=== PATIENT | female | born 1970 | race Caucasian/White ===

== ENCOUNTER 2022-04-12 14:04 | Outpatient (RCR) | payer OTHER, SELFPAY | END 2022-10-09 23:59 | disposition home or self-care (01) | LOC: CCIC 14:04 | PROVIDERS: PCP Family Medicine; Visit Provider Nurse Practitioner Family | DX: C50.912 Malignant neoplasm of unspecified site of left female breast (principal); Z17.0 Estrogen receptor positive status [ER+]; Z79.811 Long term (current) use of aromatase inhibitors | CPT/HCPCS: 99212; 99214 ==

== ENCOUNTER 2022-11-29 08:26 | Outpatient (RCR) | payer OTHER, SELFPAY | END 2023-05-28 23:59 | disposition home or self-care (01) | LOC: CCIC 08:26 | PROVIDERS: PCP Family Medicine; Visit Provider Internal Medicine Hematology & Oncology | DX: C50.912 Malignant neoplasm of unspecified site of left female breast (principal); Z17.0 Estrogen receptor positive status [ER+]; Z79.811 Long term (current) use of aromatase inhibitors | CPT/HCPCS: 99212; 99214 ==

== ENCOUNTER 2023-02-08 12:51 | Outpatient (CLI) | payer OTHER, SELFPAY ==
--- NOTE | 2023-02-08 13:00 | CRLHL7_ITS ---
For Patients: As a result of the Century Cures Act, medical imaging exams and procedure reports are released immediately into your electronic medical record. You may view this report before your referring provider. If you have questions, please contact your health care provider. BILATERAL SCREENING MAMMOGRAM WITH COMPUTER-AIDED DETECTION AND TOMOSYNTHESIS TECHNIQUE: CC and MLO views were obtained. These mammographic images have been obtained using full-field digital technique. These mammographic images were interpreted with the benefit of computer-aided detection. Breast Tomosynthesis was used in this interpretation. COMPARISON FILM: 11/16/21, 07/08/20, 03/24/19. FINDINGS: The breasts are heterogeneously dense, which may obscure small masses IMPRESSION: There is no radiographic evidence for malignancy. ASSESSMENT: BI-RADS Category 2: Benign RECOMMENDATION: Routine screening mammogram in 1 year. A lay language report of this examination will be provided to the patient. Oswaldo Christianson M.D. Diagnostic Radiologist [email or web address] Transcribed: 3:05 [email or web address]/Dictated by: Oswaldo Christianson MD @ 02/11/2023 8:39:00 AM (Electronically Signed)
== END 2023-02-08 12:52 | disposition home or self-care (01) ==
LOC: MAMMO 12:52
PROVIDERS: PCP Family Medicine; Visit Provider Family Medicine
DX: Z12.31 Encounter for screening mammogram for malignant neoplasm of breast (principal); R92.2 Inconclusive mammogram
CPT/HCPCS: 77063; 77067

== ENCOUNTER 2023-07-11 14:36 | Outpatient (CLI) | payer OTHER, SELFPAY ==
--- NOTE | 2023-07-11 | CRLHL7_ITS ---
For Patients: As a result of the Century Cures Act, medical imaging exams and procedure reports are released immediately into your electronic medical record. You may view this report before your referring provider. If you have questions, please contact your health care provider. DXA BONE MINERAL DENSITY STUDY Reason for exam: Breast cancer. Current height (in): 65. Weight (lb): 140. Menopause age: 51. Ethnicity: White. 1. Have you had a previous hip or vertebral fracture? No. 2. Have you had any fractures during your adult life which did not result from significant trauma (e.g., auto accident)? No. 3. Did either of your parents have a hip fracture? No. 4. Do you smoke? No. 5. Have you ever taken Glucocorticoids? No. 6. Do you have rheumatoid arthritis? No. 7. Do you have secondary osteoporosis? No. 8. Do you drink 3 or more alcoholic drinks per day? No. 9. Are you being treated for osteoporosis? No. 10. Have you ever taken any of the following medications: Actonel, Evista, Fosamax, Miacalcin, Reclast, Boniva, Forteo, HRT (i.e., estrogen/hormone therapy), Protelos, Prolia, Vitamin D, Calcium, other ??? please specify. ANSWER: Yes, vitamin D and calcium. 11. Do you have any of the following medical conditions: Anorexia or bulimia, asthma or emphysema, end stage renal disease, hyperparathyroidism, any seizure disorders, cancer, inflammatory bowel diseases, hysterectomy, other ??? please specify. ANSWER: Yes, cancer. 12. What was your maximum height (inches)? 65. 13. Do you perform weight bearing exercise regularly? Yes. 14. Do you regularly consume dairy products? No. 15. Do you drink caffeinated beverages? Yes. If female: 16. At what age did your period start? 16. 17. Are you premenopausal? No. 18. How many full-term pregnancies have you had? 2. 19. Have you ever missed your period for more than 6 months in a row (not including or menopause)? No. TECHNIQUE: Bone mineral density study was performed using the [employer]. FINDINGS: The results of the study expressed as bone mineral density (BMD) are as follows: Lumbar spine L1 to L4: BMD: 0.952 g/cm2. T-score: -0.9. Z-score: 0.1 Neck Left: BMD: 0.780 g/cm2. T-score: -0.6. Z-score: 0.3 Right: BMD: 0.829 g/cm2. T-score: -0.2. Z-score: 0.7 Total Left: BMD: 0.911 g/cm2. T-score: -0.3. Z-score: 0.3 Right: BMD: 0.942 g/cm2. T-score: 0.0. Z-score: 0.6 IMPRESSION: Normal bone density. *Comparison exams done prior to 01/2020 were performed on different unit, [employer] [facility]. COMPARISON: Compared with scan of 06/01/2021, the bone mineral density has decreased by 8.7 percent at the spine and decreased by 8.3 percent at the hip. Oswaldo Christianson M.D. Diagnostic Radiologist [email or web address]/Dictated by: Oswaldo Christianson MD @ 07/12/2023 10:33:00 AM (Electronically Signed)
== END 2023-07-11 14:37 | disposition home or self-care (01) ==
LOC: RAD 07-17 09:05
PROVIDERS: PCP Family Medicine; Visit Provider Internal Medicine Hematology & Oncology
DX: C50.912 Malignant neoplasm of unspecified site of left female breast (principal); Z17.0 Estrogen receptor positive status [ER+]; Z79.811 Long term (current) use of aromatase inhibitors
CPT/HCPCS: 77080; 99212; 99214

== ENCOUNTER 2024-03-16 13:44 | Outpatient (RCR) | payer OTHER, SELFPAY ==
--- NOTE | 2024-09-03 14:05 | ONC.NURNOTE ---
Patient left VM that she has signed the medical release form and would like her records faxed to [facility] as it is closer to her home. RN spoke with Medical Records and requested records be sent to [facility] per patient request. Gave them fax number if [phone]. Asked them to reach out to patient if they needed more information.
== END 2024-09-12 23:59 | disposition home or self-care (01) ==
LOC: CCIC 13:44
PROVIDERS: PCP Family Medicine; Visit Provider Physician Assistant
DX: C50.912 Malignant neoplasm of unspecified site of left female breast (principal); Z17.0 Estrogen receptor positive status [ER+]; K59.00 Constipation, unspecified; Z79.811 Long term (current) use of aromatase inhibitors
CPT/HCPCS: 99214; G0463

== ENCOUNTER 2024-03-16 14:38 | Outpatient (CLI) | payer OTHER, SELFPAY ==
--- NOTE | 2024-03-16 15:20 | CRLHL7_ITS ---
For Patients: As a result of the Century Cures Act, medical imaging exams and procedure reports are released immediately into your electronic medical record. You may view this report before your referring provider. If you have questions, please contact your health care provider. BILATERAL SCREENING MAMMOGRAM WITH COMPUTER-AIDED DETECTION AND TOMOSYNTHESIS TECHNIQUE: CC and MLO views were obtained. These mammographic images have been obtained using full-field digital technique. These mammographic images were interpreted with the benefit of computer-aided detection. Breast Tomosynthesis was used in this interpretation. COMPARISON FILM: 02/08/23, 11/16/21, 11/30/20. FINDINGS: There are scattered areas of fibroglandular density. IMPRESSION: There is no radiographic evidence for malignancy. ASSESSMENT: BI-RADS Category 2: Benign RECOMMENDATION: Routine screening mammogram in 1 year. A lay language report of this examination will be provided to the patient. Oswaldo Christianson M.D. Diagnostic Radiologist [email or web address] SP/Dictated by: Oswaldo Christianson MD @ 03/17/2024 10:38:00 AM (Electronically Signed)
== END 2024-03-16 14:39 | disposition home or self-care (01) ==
PROVIDERS: PCP Family Medicine; Visit Provider Family Medicine
DX: Z12.31 Encounter for screening mammogram for malignant neoplasm of breast (principal)
CPT/HCPCS: 77063; 77067